=== PATIENT | female | born 1960 | race Caucasian/White ===

== ENCOUNTER → 2016-11-22 | Outpatient (CLI) | payer BC | LOC: BHSO 13:03 | DX: F41.1 Generalized anxiety disorder (principal) ==

== ENCOUNTER → 2017-02-20 | Outpatient (CLI) | payer BC | LOC: BHSO 09:15 | DX: F33.42 Major depressive disorder, recurrent, in full remission (principal) ==

== ENCOUNTER → 2017-05-22 | Outpatient (CLI) | payer BC | LOC: BHSO 14:59 | DX: F41.1 Generalized anxiety disorder (principal) ==

== ENCOUNTER → 2017-08-03 | Outpatient (CLI) | payer BC | LOC: MC.RAD 13:37 | DX: Z12.31 Encounter for screening mammogram for malignant neoplasm of breast (principal) ==

== ENCOUNTER → 2017-08-20 | Outpatient (CLI) | payer BC | LOC: BHSO 10:03 | DX: F41.1 Generalized anxiety disorder (principal) ==

== ENCOUNTER → 2018-03-01 | Outpatient (CLI) | payer BC | LOC: BHSO 10:14 | DX: F41.1 Generalized anxiety disorder (principal) | CPT/HCPCS: G0463 ==

== ENCOUNTER → 2018-04-12 | Outpatient (CLI) | payer BC | LOC: BHSO 10:38 | DX: F41.1 Generalized anxiety disorder (principal) | CPT/HCPCS: G0463 ==

== ENCOUNTER → 2018-06-12 | Outpatient (CLI) | payer BC | LOC: BHSO 10:38 | DX: F33.42 Major depressive disorder, recurrent, in full remission (principal) | CPT/HCPCS: G0463 ==

== ENCOUNTER → 2018-09-25 | Outpatient (CLI) | payer BC | LOC: BHSO 11:38 | DX: F41.1 Generalized anxiety disorder (principal) | CPT/HCPCS: G0463 ==

== ENCOUNTER → 2019-03-25 | Outpatient (CLI) | payer BC | LOC: BHSO 16:15 | DX: F41.1 Generalized anxiety disorder (principal) | CPT/HCPCS: G0463 ==

== ENCOUNTER 2023-11-16 08:52 | Day surgery (SDC) | payer BC ==
[~2023-11-16] VITALS: Ht 160 cm; Wt 59.7 kg
[2023-11-16] MEDS ORDERED: LEXAPRO20 MG PO (10:02)
[2023-11-16 11:10] VITALS: BP 143/92; PULSE 76; TEMP 97.3
[2023-11-16 11:30] VITALS: BP 151/94; PULSE 66
--- NOTE | 2023-11-16 11:41 | NUR ---
1110- PATIENT RETURNS TO [facility] [place] CART. PT AWAKE AND ALERT. RESPIRATIONS UNLABORED. AMBULATED TO RECLINER CHAIR WITH 2:1 SBA. PT DENIES NAUSEA OR ABDOMINAL PAIN. HOOKED UP TO MONITOR AND VS OBTAINED. CALL LIGHT AT SIDE. 1115- DR. ALONSO IN ROOM SPEAKING WITH PATIENT. 1120- PATIENT TOLERATING COFFEE AND MUFFIN WITHOUT NAUSEA. 1131- D/C INSTRUCTIONS REVIEWED WITH PATIENT. PT VERBALIZED UNDERSTANDING AND A COPY OF INSTRUCTIONS PROVIDED IN D/C FOLDER. 1136- PATIENT DRESSES SELF. 1141- PATIENT DISCHARGED FROM UNIT VIA W/C TO 'S PERSONAL VEHICLE. PT LEFT HOSPITAL IN STABLE CONDITION.
[2023-11-16 12:38] VITALS: BP 154/96; PULSE 58; TEMP 97.5
--- NOTE | 2023-11-16 12:40 | NUR ---
0956 Pt ambulatory to bay 6 with a steady gait, breathing even and unlabored. Pt is alert and oriented. Consents reviewed with and signed by pt. IV established. LR infusing via gravity at KVO. Call light in reach. Warm blanket provided.
== END 2023-11-16 11:41 | disposition home or self-care (01) ==
LOC: SDCO 08:52
DX: Z12.11 Encounter for screening for malignant neoplasm of colon (principal); Z87.891 Personal history of nicotine dependence
CPT/HCPCS: J2704; J7120

== ENCOUNTER → 2024-06-20 | Outpatient (CLI) | payer BC ==
[~2024-06-20] MED LIST: LEXAPRO20 MG PO
== END ==
LOC: MC.RAD 07:47
DX: Z12.31 Encounter for screening mammogram for malignant neoplasm of breast (principal)